=== PATIENT | male | born 1990 | race Caucasian/White ===

== ENCOUNTER 2017-07-18 23:20 | Emergency (ER) | payer OTHER ==
[2015-08-29 08:11] VITALS: Wt 77.1 kg
[~2017-07-18 23:20] MED LIST: ALB18R INH; CALC-515 PO; DOCU-416 PO; IBUP-2708 PO; MIR15 PO; MIRT-1 PO; MULT-1379 PO; NO ROUTINE MEDS; OXYC-865 PO; TRA50 PO; VENL75CA58 PO
[2017-07-18 23:21] VITALS: BP 103/96
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
== END 2017-07-18 23:40 ==
LOC: ER 23:26
DX: R45.851 Suicidal ideations (principal); F10.920 Alcohol use, unspecified with intoxication, uncomplicated; F41.9 Anxiety disorder, unspecified; F33.9 Major depressive disorder, recurrent, unspecified
CPT/HCPCS: 99283

== ENCOUNTER 2018-02-15 02:39 | Emergency (ER) | payer OTHER ==
[2015-08-29 08:11] VITALS: Wt 77.1 kg
[~2018-02-15 02:39] MED LIST changes: -CEPH500T7 PO; -HYDR-4309 PO
[2018-02-15] MEDS ORDERED: ONDANSETRON 4 MG/2 ML VIAL ONE (02:42)
[2018-02-15] MEDS ORDERED: ONDANSETRON 4 MG ODT TABDP SL ONE ×2 (02:45)
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
--- NOTE | 2018-02-15 03:55 | RADIOLOGY IMAGING REPORT ---
FACILITY: [facility] PATIENT NAME: Dustin Oquendo : 1990 MR: [id number] V: [id number] EXAM DATE: ORDERING PHYSICIAN: MAGNOLIA KATZ TECHNOLOGIST: [place] [facility] [place] Dustin Oqu[place] : 1990 Visit/Account:[id number] Date of Sevice: 02/15/[address]: Indication: Injury. Technique: Contiguous axial sections were obtained from the base to the vertex without contrast enhan cement. One of the following dose optimization techniques was utilized in the performance of this exam: Autom ated exposure control; adjustment of the mA and/or kV according to the patient's size; or use of an i terative reconstruction technique. Specific details can be referenced in the facility's radiology CT exam operational policy. Comparison: 09/24/2016 Findings: There is no evidence of intra-axial or extra-axial hemorrhage. No focal areas of decreased or increased attenuation are identified. There is no evidence of mass, edema, or shift of the midline structures. The size, shape, and configuration of the ventricular system are normal. There are signs of acute fractures in the right orbit and nasal bones. There are no signs of skull fr acture. Free fluid and mucosal thickening are present in the right maxillary and ethmoid sinuses. Impression: No evidence of hemorrhage or skull fracture. No acute intracranial abnormality. There are signs of right orbital and nasal bones fractures. Report Dictated By: Manuel Perez MD at 02/15/2018 3:46 AM Report E-Signed By: Manuel Perez MD at 02/15/2018 3:52 AM WSN:[id number]
--- NOTE | 2018-02-15 04:08 | RADIOLOGY IMAGING REPORT ---
[place] [facility] [place] NAME: Dustin Oquendo : 1990 MR: [id number] V: [id number] EXAM DATE: ORDERING PHYSICIAN: MAGNOLIA KATZ TECHNOLOGIST: Location: [facility] [place] Patient: Dustin Oquendo : 1990 Visit/Account:[id number] Date of Sevice: 02/15/2018 CT of the cervical spine without contrast: Indication: Injury. Technique: Helical CT was performed through the cervical spine without contrast. Axial, coronal, and sagittal reconstructions are reviewed. One of the following dose optimization techniques was utilized in the performance of this exam: Autom ated exposure control; adjustment of the mA and/or kV according to the patient's size; or use of an i terative reconstruction technique. Specific details can be referenced in the facility's radiology CT exam operational policy. Comparison: 09/24/2016 Findings: There is no evidence of fracture, compression, subluxation, or other acute deformity. There is uniform mineralization. The skeletal structures are otherwise unremarkable. No paraspinal soft ti ssue abnormalities are identified. IMPRESSION: No evidence of fracture or acute deformity. No significant change. Report Dictated By: Manuel Perez MD at 02/15/2018 3:52 AM Report E-Signed By: Manuel Perez MD at 02/15/2018 4:05 AM WSN:[id number]
--- NOTE | 2018-02-15 04:17 | RADIOLOGY IMAGING REPORT ---
FACILITY: [facility] [place] PATIENT NAME: Dustin Oquendo : 1990 MR: [id number] V: [id number] EXAM DATE: ORDERING PHYSICIAN: MAGNOLIA KATZ TECHNOLOGIST: Location: [facility] Patient: Dustin Oquendo : 1990 Visit/Account:[id number] Date of Sevice: 02/15/2018 CT of the facial bones and orbits: HISTORY: Injury. TECHNIQUE: Helical CT was performed without contrast. Multiplanar reconstructions are reviewed. One of the following dose optimization techniques was utilized in the performance of this exam: Autom ated exposure control; adjustment of the mA and/or kV according to the patient's size; or use of an i terative reconstruction technique. Specific details can be referenced in the facility's radiology CT exam operational policy. COMPARISON: None. FINDINGS: Osseous structures: There is an acute fracture through the right inferior orbital rim and right orbit al floor, without gross displacement. There is also an acute fracture through the medial wall of the right orbit, with a few millimeters leftward displacement. There appears to be acute deformity in the medial wall of the right maxillary sinus. There are acute fractures on the right side of the nasal b ones, with mild leftward displacement. No other acute skeletal deformities are identified. There is n ormal mineralization. Soft Tissues: There is localized soft tissue swelling around the right orbit. No foreign body or gas is identified in the soft tissues. Orbits: The optic globes, optic nerves, and extraocular muscles appear intact and unremarkable. There are no signs of entrapment of the right extraocular muscles. Sinuses and mastoids: There is a small amount of free fluid in the right maxillary sinus. There is mu cosal thickening and fluid in the right ethmoid air cells. IMPRESSION: There are acute fractures through the right inferior orbital rim, right orbital floor, an d medial wall of the right orbit. There are also acute fractures through the medial wall of the right maxillary sinus and right side of the nasal bones. The right orbital contents appear intact and unremarkable. There are no signs of entrapment of the ex traocular muscles. Report Dictated By: Manuel Perez MD at 02/15/2018 4:05 AM Report E-Signed By: Manuel Perez MD at 02/15/2018 4:14 AM WSN:[email or web address]
[2018-02-15] MEDS ORDERED: CEPHALEXIN MONO 500 MG CAP PO ONE (04:20)
[2018-02-15] MEDS ORDERED: IBUPROFEN 600 MG TAB PO ONE (04:20)
[2018-02-15] MEDS ORDERED: ACETAMINOPHEN 325 MG SUPP PR ONE (04:20)
[2018-02-15] MEDS ORDERED: ACETAMINOPHEN 325 MG TAB PO ONE (04:30)
[2018-02-15] MEDS ORDERED: HYDR-4309 PO (04:30)
[2018-02-15] MEDS ORDERED: CEPH500T7 PO (04:30)
[2018-02-15 04:33] VITALS: BP 129/89
[2018-02-15] MEDS ORDERED: ONDANSETRON 4 MG ODT TH SL ONE (04:50)
== END 2018-02-15 05:03 | disposition home or self-care (01) ==
LOC: ER 02:42
DX: S09.90XA Unspecified injury of head, initial encounter (principal); F10.920 Alcohol use, unspecified with intoxication, uncomplicated; S05.11XA Contusion of eyeball and orbital tissues, right eye, initial encounter; S01.111A Laceration without foreign body of right eyelid and periocular area, initial encounter; S00.33XA Contusion of nose, initial encounter; S02.31XA Fracture of orbital floor, right side, initial encounter for closed fracture; S02.2XXA Fracture of nasal bones, initial encounter for closed fracture; Y04.2XXA Assault by strike against or bumped into by another person, initial encounter
CPT/HCPCS: 70450; 70486; 72125; 99284; S0119

== ENCOUNTER → 2018-02-15 | Outpatient (CLI) | payer SELFPAY ==
[2015-08-29 08:11] VITALS: BMI 20.4
[~2018-02-15] MED LIST changes: +CEPH500T7 PO; +HYDR-4309 PO
== END ==
LOC: AMB 02:20
PROVIDERS: ATTEND Nurse Practitioner
DX: S01.111A Laceration without foreign body of right eyelid and periocular area, initial encounter (principal); S00.11XA Contusion of right eyelid and periocular area, initial encounter; M79.89 Other specified soft tissue disorders; Y04.2XXA Assault by strike against or bumped into by another person, initial encounter
CPT/HCPCS: A0425; A0429

== ENCOUNTER 2018-09-14 10:47 | Emergency (ER) | payer OTHER ==
[2015-08-29 08:11] VITALS: Wt 77.1 kg
[~2018-09-14 10:47] MED LIST changes: +CEPH500T7 PO; +HYDR-653 PO
[2018-09-14] MEDS ORDERED: ESCI20TA38 PO (10:53)
[2018-09-14] MEDS ORDERED: LAMO100T52 PO (10:54)
--- NOTE | 2018-09-14 10:58 | ER Report ---
History and Physical Time Seen By MD: 10:58 Hx. 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 BLEEDING CONTROLLED AT THIS TIME HPI/ROS CHIEF COMPLAINT: Laceration HISTORY OF PRESENT ILLNESS: Patient is a 27 year old male presenting to the clinic with a laceration to the left forearm. Patient was at work and was cutting off the top tabs on boxes with a estimator paperboard boxes. The estimator paperboard boxes became stuck and he pushed on the estimator paperboard boxes harder. The estimator paperboard boxes then went through the box and into his arm. Patient applied gauze and tape to the area. Patient up to date with tetanus and got his last tetanus in 2017. Happened today, 09/14/2018, around 10:00 am REVIEW OF SYSTEMS: Respiratory: No cough, no dyspnea. Cardiovascular: No chest pain, no palpitations. Gastrointestinal: No vomiting, no abdominal pain. Musculoskeletal: No numbness or tingling down his arm. Patient has full ROM in left arm. Allergies: Coded Allergies: No Known Drug Allergies (Unverified , 02/15/18) Home Meds Reported Medications Lamotrigine (LAMOTRIGINE) 100 Mg Tablet, 100 MG PO 09/14/18 Escitalopram Oxalate (LEXAPRO) 20 Mg Tablet, 20 MG PO QDAY, TAB 09/14/18 Discontinued Scripts Cephalexin 500 Mg Tab (KEFLEX 500 MG TAB) 500 Mg Tablet, 500 MG PO TID for infection, #30 TAB Prov:MAGNOLIA KATZ DO 02/15/18 Hydrocodone Bit/Acetaminophen (NORCO 5-325 TABLET) 1 Each Tablet, 1 EACH PO Q4H PRN for PAIN, #12 TAB Prov:MAGNOLIA KATZ DO 02/15/18 Past Medical/Surgical History Patient has the katharina's gene, GERD, and depression. Patient had a hernia repair 1.5 year ago. Reviewed Nurses Notes: Yes Hx Smoking: No Smoking Status: Never Smoker Exposure to Second Hand Smoke?: No Hx Substance Use Disorder: No Hx Alcohol Use: Yes Constitutional Vital Sign - Last 24 Hours 09/14/18 09/14/18 10:50 11:53 Temp 98.5 Pulse 85 Resp 16 B/P (MAP) 138/88 (105) Pulse Ox 95 O2 Delivery Room Air Room Air Physical Exam General Appearance: The patient is alert, has no immediate need for airway protection and no current signs of toxicity. Respiratory: Chest is non tender, lungs are clear to auscultation. Cardiac: Regular rate and rhythm Musculoskeletal: Extremities have full range of motion and are non tender. No decreased sensation in left arm. Strength strong and equal bilaterally. Skin: Left forearm, laceration 1.2 cm in length. Depth is into the subcutaneous tissue. [DIFFERENTIAL DIAGNOSIS: After history and physical exam differential diagnosis was considered for laceration, tendon or ligament involvement. Medical Decision Making ED Course/Re-evaluation ED Course Patient was admitted to the ED room and placed in a bed. History and physical were obtained. Differential diagnoses were considered. Patient has a 1.2 cm laceration to the left forearm. 1.5 ml of 2% lidocaine was administered to the laceration. Wound was cleaned by staff. Patient verified the laceration was numb. 4.0 Prolene was used and 3 sutures were placed. Bacitracin, keflex, and gauze was applied. Area was wrapped with coban. Instructions were given to the patient on care of the site. Also instructed patient on signs and symptoms of infection. Patient verbalized understanding. Patient discharged to home. Procedure: Laceration repair. Verbal consent was obtained from the patient. The 1.2 cm laceration on the left forearm was anesthetized in the usual fashion. The wound was scrubbed, draped and explored to its base with a gloved finger. There were no deep structures involved. No tendon injury was identified. The wound was repaired with 3 simple interrupted sutures using 4-0 Prolene material. The wound repair was simple. The procedure was performed by myself. Decision to Disposition Date: Sep 14, 2018 Decision to Disposition Time: 11:30 Depart Departure Latest Vital Signs Vital Signs Date Time Temp Pulse Resp B/P (MAP) Pulse Ox O2 Delivery O2 Flow Rate FiO2 09/14/18 11:53 85 16 138/88 (105) 95 Room Air 09/14/18 10:50 98.5 Impression: Primary Impression: Laceration Condition: Improved Disposition: HOME OR SELF-CARE Patient Instructions: Laceration (ED) Additional Instructions: Keep wound dry for 48 hours. Follow up with your primary care provider in the next 7-10 days to have sutures removed. Monitor for signs of infection; redness, swelling, heat, discharge, increasing pain or red streaking. Take Tylenol or Ibuprofen as needed for pain. Return to the ER with any concerns. You may change dressing as needed. SUSANNA BENAVIDES Sep 14, 2018 10:58
[2018-09-14 11:53] VITALS: BP 138/88
== END 2018-09-14 11:58 | disposition home or self-care (01) ==
LOC: ER 11:14
DX: S51.812A Laceration without foreign body of left forearm, initial encounter (principal); W26.0XXA Contact with knife, initial encounter
CPT/HCPCS: 99283

== ENCOUNTER 2018-11-14 19:19 | Inpatient (IN) | payer SELFPAY ==
[~2018-11-14] VITALS: Ht 180.3 cm; Wt 77.1 kg
[~2018-11-14 19:19] MED LIST changes: +ESCI20TA38 PO; +LAMO100T52 PO
--- NOTE | 2018-11-14 19:31 | ER Report ---
History and Physical Time Seen By MD: 19:31 HPI/ROS CHIEF COMPLAINT: suicide attempt by overdose HISTORY OF PRESENT ILLNESS: This is a 28 year old male. He attempted suicide tonight by overdosing on his medications. He took Lexapro 20mg tablets approx # 50, Lamictal 100mg tablets approx #60, and Seroquel 25mg tablets, approx #60. This was about 40 minutes prior to arrival. Here with family. He is now vomiting up his stomach contents, lots of pill fragments present. Denies other medications ingested. Suicidal thought worsening the last few weeks. Prior suicide attempt with Tylenol overdose, and in the past also attempted to shoot himself, but could not pull the trigger. Has been admitted to behavioral health in the past for suicidal ideation and for suicide attempts. He is feeling very tired. REVIEW OF SYSTEMS: Constitutional: No fever or chills. Eyes: No vision changes. ENT: No sore throat. No congestion. Cardiovascular: No chest pain. Respiratory: No shortness of breath. Gastrointestinal: No abdominal pain. Genitourinary: No recent trouble with urination. Musculoskeletal: No musculoskeletal pain. Skin: No rashes. Neurological: As above. Allergies: Coded Allergies: No Known Drug Allergies (Unverified , 11/14/18) Home Meds Reported Medications Quetiapine Fumarate (SEROQUEL) 25 Mg Tablet, 25 MG PO HS 11/14/18 Lamotrigine (LAMOTRIGINE) 100 Mg Tablet, 100 MG PO 09/14/18 Escitalopram Oxalate (LEXAPRO) 20 Mg Tablet, 20 MG PO QDAY, TAB 09/14/18 Reviewed Nurses Notes: Yes Hx Smoking: No Smoking Status: Never Smoker Exposure to Second Hand Smoke?: No Hx Substance Use Disorder: No Hx Alcohol Use: Yes Constitutional Vital Sign - Last 24 Hours 11/14/18 11/14/18 11/14/18 11/14/18 19:21 19:24 19:49 19:50 Pulse 105 92 87 Resp 35 20 B/P (MAP) 125/79 (94) 125/79 Pulse Ox 94 93 93 O2 Delivery Room Air 11/14/18 11/14/18 11/14/18 11/14/18 20:00 20:19 20:30 20:49 Pulse 81 75 Resp 8 22 B/P (MAP) 116/75 (89) 123/81 (95) Pulse Ox 95 92 11/14/18 21:00 B/P (MAP) 110/59 (76) Intake and Output 11/14/18 11/14/18 11/15/18 15:00 23:00 07:00 Intake Total 1000 ml Balance 1000 ml Physical Exam General Appearance: The patient is alert. Acute distress from ongoing vomiting. Vomiting up emesis with a lot of pill fragments. Eyes: Pupils are equal, round. No pallor or icterus, but does have some injection. Extraocular movements are intact. ENT: Mucous membranes are moist. Normal oral mucosa. Posterior oropharynx is normal. Neck: Supple and non tender. Respiratory: Lungs are clear to auscultation. Cardiovascular: Regular rate and rhythm. No murmurs, gallops or rubs. Normal capillary refill. Gastrointestinal: Abdomen is soft and non tender. Nondistended. Normal active bowel sounds. Neurological: Alert and oriented x3. No focal neurologic deficits other than being tired. Skin: Warm and dry. DIFFERENTIAL DIAGNOSIS: After history and physical exam, differential diagnosis was considered for suicide attempt by attempted overdose as above. Medical Decision Making Data Points Result Diagram: 11/14/18 1927 11/14/18 2244 Laboratory Hematology Test 11/14/18 19:27 Red Blood Count 5.71 M/uL (4.00-5.60) Mean Corpuscular Volume 88.2 fL (80.0-96.0) Mean Corpuscular Hemoglobin 30.9 pg (26.0-33.0) Mean Corpuscular Hemoglobin Concent 35.0 g/dL (32.0-36.0) Red Cell Distribution Width 13.0 % (11.5-14.5) Mean Platelet Volume 8.1 fL (7.2-11.1) Neutrophils (%) (Auto) 59.9 % (39.4-72.5) Lymphocytes (%) (Auto) 27.0 % (17.6-49.6) Monocytes (%) (Auto) 8.8 % (4.1-12.4) Eosinophils (%) (Auto) 3.1 % (0.4-6.7) Basophils (%) (Auto) 1.2 % (0.3-1.4) Nucleated RBC Relative Count (auto) 0.2 /100WBC Neutrophils # (Auto) 3.0 K/uL (2.0-7.4) Lymphocytes # (Auto) 1.4 K/uL (1.3-3.6) Monocytes # (Auto) 0.4 K/uL (0.3-1.0) Eosinophils # (Auto) 0.2 K/uL (0.0-0.5) Basophils # (Auto) 0.1 K/uL (0.0-0.1) Nucleated RBC Absolute Count (auto) 0.01 K/uL Prothrombin Time 13.1 seconds (12.0-14.4) Prothromb Time International Ratio 0.99 Activated Partial Thromboplast Time 26 seconds (23-35) Magnesium Level 1.7 mg/dl (1.7-2.2) Serum Alcohol < 10 mg/dl Chemistry Test 11/14/18 19:27 White Blood Count 5.0 k/uL (4.5-11.0) Red Blood Count 5.71 M/uL (4.00-5.60) Hemoglobin 17.6 g/dL (14.0-18.0) Hematocrit 50.4 % (42.0-52.0) Mean Corpuscular Volume 88.2 fL (80.0-96.0) Mean Corpuscular Hemoglobin 30.9 pg (26.0-33.0) Mean Corpuscular Hemoglobin Concent 35.0 g/dL (32.0-36.0) Red Cell Distribution Width 13.0 % (11.5-14.5) Platelet Count 205 K/uL (150-450) Mean Platelet Volume 8.1 fL (7.2-11.1) Neutrophils (%) (Auto) 59.9 % (39.4-72.5) Lymphocytes (%) (Auto) 27.0 % (17.6-49.6) Monocytes (%) (Auto) 8.8 % (4.1-12.4) Eosinophils (%) (Auto) 3.1 % (0.4-6.7) Basophils (%) (Auto) 1.2 % (0.3-1.4) Nucleated RBC Relative Count (auto) 0.2 /100WBC Neutrophils # (Auto) 3.0 K/uL (2.0-7.4) Lymphocytes # (Auto) 1.4 K/uL (1.3-3.6) Monocytes # (Auto) 0.4 K/uL (0.3-1.0) Eosinophils # (Auto) 0.2 K/uL (0.0-0.5) Basophils # (Auto) 0.1 K/uL (0.0-0.1) Nucleated RBC Absolute Count (auto) 0.01 K/uL Prothrombin Time 13.1 seconds (12.0-14.4) Prothromb Time International Ratio 0.99 Activated Partial Thromboplast Time 26 seconds (23-35) Magnesium Level 1.7 mg/dl (1.7-2.2) Serum Alcohol < 10 mg/dl Coagulation Test 11/14/18 19:27 Prothrombin Time 13.1 seconds Prothromb Time International Ratio 0.99 Activated Partial Thromboplast Time 26 seconds Toxicology Test 11/14/18 19:27 Serum Alcohol < 10 mg/dl ED Course/Re-evaluation Clinical Indication for ER IV: Hydration, IV Access ED Course Patient was initially vomiting. Once he stopped vomiting and was able to purge a lot of the contents of his stomach, we went ahead and use Zofran to help with nausea and vomiting and then had him take 25 mg of activated charcoal with sorbitol. Also gave a liter of normal saline. Labs obtained with the mildly low potassium. Toxicology at poison control was counseled did with recommendations for each of these medicines. Lexapro level taken tonight was 1000 mg, greater than 500 mg recommended telemetry for 13 hours, watch for QT prolongation, serotonin syndrome, hyponatremia, tachycardia, and seizures. Lamictal dose tonight was over 6 g. Risk for status epilepticus, hypokalemia, tachycardia, CUSTOMER EXPERIENCE STRATEGIST depression, coma, and increased LFTs. Seroquel level taken tonight was 1500 mg, 800 mg max over every 24 hours, watch for tachycardia, QTC prolongation, seizures, myoclonic jerks, CUSTOMER EXPERIENCE STRATEGIST depression, increased LFTs Recommendation repeating a toxic level for Tylenol and salicylates at 4 hours which would be about 2230 hrs.. Also recommended repeating EKG every 6 hours and trending. Recommended keeping potassium greater than 4.5, mag greater than 2, calcium greater than 9. Recommended bicarbonate QRS duration exceeds 120. R ecommended trying to keep QTC below 460. His potassium is little low, went ahead and gave a 20 mEq potassium rider. Anion gap is low. Gave another liter of saline. Discussed with Dr. Torres, hospitalist, who accepted the patient for admission to ICU tonight. Decision to Disposition Date: November 14, 2018 Decision to Disposition Time: 21:30 Critical Care Time I spent a total of 60 minutes of critical care time in obtaining history, performing a physical exam, bedside monitoring of interventions, collecting and interpreting tests and discussion with consultants but not including time spent performing procedures. Depart Departure Latest Vital Signs Vital Signs Date Time Temp Pulse Resp B/P (MAP) Pulse Ox O2 Delivery O2 Flow Rate FiO2 11/14/18 21:00 110/59 (76) 11/14/18 20:49 75 22 92 11/14/18 19:50 Room Air Impression: Primary Impression: Drug overdose, intentional Condition: Critical Disposition: Admitted from ER Problem Qualifiers Primary Impression: Drug overdose, intentional Encounter type: initial encounter Qualified Codes: T50.902A - Poisoning by unspecified drugs, medicaments and biological substances, intentional self-harm, initial encounter MARÍA BRUNNER MD November 14, 2018 19:31
[2018-11-14] MEDS ORDERED: NS(*) 0.9% 1000 ML BAG 1,000 ML IV ONE ×2 (19:35→20:25)
[2018-11-14] MEDS ORDERED: ONDANSETRON 4 MG/2 ML VIAL IVP ONE (19:35)
[2018-11-14] MEDS ORDERED: ACTIVATED CHAR/SORB 25GM/120ML PO ONE (19:35)
[2018-11-14 19:43] LABS: PLATELET COUNT, AUTOMATED 205 K/uL (150-450)
[2018-11-14 19:57] LABS: INR 0.99
[2018-11-14] MEDS ORDERED: KCL (*) 20 MEQ/100 ML PREMIX 100 ML IV ONE (20:25)
[2018-11-14] MEDS ORDERED: QUET25TA30 PO (20:26)
[2018-11-14 22:00] VITALS: BP 115/83
[2018-11-14] MEDS ORDERED: NS(*) 0.9% 1000 ML BAG 1,000 ML IV PRN (22:01)
[2018-11-14] MEDS ORDERED: MAGNESIUM SUL* 2 GM/50 ML IVPB 50 ML IVPB ONE (22:05)
[2018-11-14] MEDS ORDERED: FLUSH 10 ML SYR IVP PRN (22:05)
--- NOTE | 2018-11-14 22:47 | History & Physical ---
History of Present Illness Chief Complaint overdose History of Present Illness 28M presented with recent intentional overdose. PMHx significant for depression, suicide attempts. Reports took 1000mg Lexapro, 6 grams Lamictal, 1500mg Seroquel at 1830 in suicide attempt. Vomited repeatedly on presentation with pills in emesis. Given activated charcoal. Admitted for monitoring and treatment to ICU. History Problems: (1) Suicidal ideation Status: Acute (2) Depression Status: Chronic Home Meds Reported Medications Quetiapine Fumarate (SEROQUEL) 25 Mg Tablet, 25 MG PO HS 11/14/18 Lamotrigine (LAMOTRIGINE) 100 Mg Tablet, 100 MG PO 09/14/18 Escitalopram Oxalate (LEXAPRO) 20 Mg Tablet, 20 MG PO QDAY, TAB 09/14/18 Allergies: Coded Allergies: No Known Drug Allergies (Unverified , 11/14/18) Patient History: FH: [place]'s disease FATHER (LANA'S DISEASE) Hx Smoking: No Smoking Status: Never Smoker Exposure to Second Hand Smoke?: No Caffeine Intake: Tea, Soda Caffeine/Cups Per Day: 2 Hx Alcohol Use: Yes Hx Substance Use Disorder: No Social Drug Use: Former Social Drugs: Marijuana Amount Of Social Drug/s Used: tried it twice Review of Systems All Systems Reviewed/Normal: Yes, Except as Noted Cardiovascular: No Chest Pain Gastrointestinal: No Nausea, No Vomiting Exam Vital Signs Vital Signs Date Time Temp Pulse Resp B/P (MAP) Pulse Ox O2 Delivery O2 Flow Rate FiO2 11/14/18 21:00 110/59 (76) 11/14/18 20:49 75 22 92 11/14/18 19:50 Room Air General Appearance: Awake, No Acute Distress, Afebrile Neuro: No Gross deficits Cardiovascular: Normal Rhythm & Peripheral Pulses Respiratory: No Respiratory Distress GI: Abd Soft and Non-Tender Extremities: Soft and Non Tender, Warm, Pulses, Perfused Medical Decision Making Data Points Result Diagram: 11/14/18192611/14/181926 EKG / Imaging EKG Interpretation NSR, QRS and QTc WNL. Assessment and Plan Problems: (1) Drug overdose, intentional Status: Acute Assessment & Plan: Overdose on quetiapine, lamotrigine and escitalopram. Monitor labs and EKG. Maintain K above 4, Mg above 2 Ca around 9. Monitor QRS and QTc for prolongation. Voluntary admission but if attempts to leave will place on emergency hold. (2) Depression Status: Chronic Venous Thromboembolism Antithrombotics Is Pt On Any Antithrombotics?: Yes Exam Sepsis Risk: No Definite Risk RODRIGUEZ SARAH BARRETT DO November 14, 2018 22:47
[2018-11-15] VITALS (7 sets, daily range): BP systolic 90–109; BP diastolic 44–76; Ht 180.3 cm; Wt 77.1 kg
--- NOTE | 2018-11-15 00:02 | EKG ---
FACILITY: [facility] PATIENT NAME: HUMZA OLIVER : [id number] MR: [id number] V: [id number] EXAM DATE: ORDERING PHYSICIAN: MARÍA BRUNNER TECHNOLOGIST: NIYAH Miller Reason : overdose Blood Pressure : / mmHG Vent. Rate : 089 BPM Atrial Rate : 089 BPM P-R Int : 130 ms QRS Dur : 096 ms QT Int : 352 ms P-R-T Axes : 050 065 012 degrees QTc Int : 428 ms Normal sinus rhythm Normal ECG When compared with ECG of 03-AUG-2015 08:00, T wave inversion now evident in Inferior leads Confirmed by BRINA ZUÑIGA ([id number]) on 11/15/2018 7:44:33 PM Referred By: Confirmed By:BRINA ZUÑIGA
--- NOTE | 2018-11-15 01:04 | EKG ---
FACILITY: [facility] PATIENT NAME: HUMZA OLIVER : [id number] MR: [id number] V: [id number] EXAM DATE: ORDERING PHYSICIAN: SARAH BARRETT TECHNOLOGIST: NIYAH Miller Reason : OVERDOSE Blood Pressure : / mmHG Vent. Rate : 065 BPM Atrial Rate : 065 BPM P-R Int : 124 ms QRS Dur : 096 ms QT Int : 368 ms P-R-T Axes : 050 067 033 degrees QTc Int : 382 ms Normal sinus rhythm Normal ECG When compared with ECG of 14-NOV-2018 19:48, No significant change was found Confirmed by BRINA ZUÑIGA ([id number]) on 11/15/2018 7:43:00 PM Referred By: Confirmed By:BRINA ZUÑIGA
[2018-11-15] MEDS ORDERED: MAGNESIUM SUL* 2 GM/50 ML IVPB 50 ML ONE (04:50)
[2018-11-15] MEDS ORDERED: ENOXAPARIN 40 MG/0.4ML SYR SC SCH (09:00)
--- NOTE | 2018-11-15 11:54 | EKG ---
FACILITY: [facility] PATIENT NAME: HUMZA OLIVER : [id number] MR: [id number] V: [id number] EXAM DATE: ORDERING PHYSICIAN: SARAH BARRETT TECHNOLOGIST: NIYAH Miller Reason : OVERDOSE Blood Pressure : / mmHG Vent. Rate : 066 BPM Atrial Rate : 066 BPM P-R Int : 144 ms QRS Dur : 094 ms QT Int : 370 ms P-R-T Axes : 048 069 029 degrees QTc Int : 387 ms Normal sinus rhythm Normal ECG When compared with ECG of 15-NOV-2018 00:32, No significant change was found Confirmed by BRINA ZUÑIGA ([id number]) on 11/15/2018 7:42:34 PM Referred By: Confirmed By:BRINA ZUÑIGA
--- NOTE | 2018-11-15 12:44 | Hospitalist Depart ---
Discharge Summary Reason for Hosp/Final Diag: (1) Drug overdose, intentional Status: Acute Hospital Course & Plan: The patient overdosed on quetiapine, lamotrigine and escitalopram. Poison control was consulted and recommended monitoring labs and EKG/telemetry. Also recommended was to maintain potassium above 4, magnesium above 2, and calcium around 9. He was hydrated and placed on telemetry to monitor QRS and QTc for prolongation as well as arrhythmias. He has had no cardiac issues. His electrolytes have been WNL (calcium is WNL with correction for albumin). [facility] has agreed to take the patient in transfer. (2) Depression Status: Chronic Hospital Course & Plan: The patient apparently recently started new medications. He agreed to transfer to [facility] for further evaluation and treatment. Departure Weight (Pounds): 170 Result Diagram: 11/14/18192611/15/18 0600 Condition: Improved Discharge: [facility] Time Spent: < 30 min Discharge Instructions Home Meds Reported Medications Quetiapine Fumarate (SEROQUEL) 25 Mg Tablet, 25 MG PO HS 11/14/18 Lamotrigine (LAMOTRIGINE) 100 Mg Tablet, 100 MG PO 09/14/18 Escitalopram Oxalate (LEXAPRO) 20 Mg Tablet, 20 MG PO QDAY, TAB 09/14/18 Diet: Regular Activity: As Tolerated Venous Thromboembolism Antithrombotics Is Pt On Any Antithrombotics?: Yes Problem Qualifiers (1) Drug overdose, intentional: Encounter type: initial encounter Qualified Codes: T50.902A - Poisoning by unspecified drugs, medicaments and biological substances, intentional self-harm, initial encounter BRINA VALVERDE MD November 15, 2018 12:43
== END 2018-11-15 13:35 | DRG 918 ==
LOC: ER 19:31 → ICU 21:52
PROVIDERS: ADMIT Internal Medicine; ATTEND Internal Medicine
DX: T43.592A Poisoning by other antipsychotics and neuroleptics, intentional self-harm, initial encounter (principal); F32.9 Major depressive disorder, single episode, unspecified; Z91.5 Personal history of self-harm
CPT/HCPCS: 36415; 80320; 80329; 82040; 82247; 82310; 82374; 82435; 82565; 82947; 83735; 84075; 84132; 84155; 84295; 84450; 84460; 84520; 85025; 85610; 85730; 93005; 96361; 96374; 99291; J1650; J2405; J3475; J3480; J7030

== ENCOUNTER 2018-11-15 13:32 | Inpatient (IN) | payer SELFPAY ==
[~2018-11-15] VITALS: Ht 180.3 cm; Wt 77.1 kg
[2018-11-15 08:33] VITALS: Ht 180.3 cm; Wt 77.1 kg
[~2018-11-15 13:32] MED LIST changes: +QUET25TA30 PO
[2018-11-15 13:35] VITALS: BP 128/68
[2018-11-15 20:15] VITALS: BP 118/72
[2018-11-16 06:26] LABS: PLATELET COUNT, AUTOMATED 193 K/uL (150-450)
[2018-11-16 06:38] VITALS: BP 119/83
[2018-11-16] MEDS: MULTIVITAMINS TAB PO SCH (08:08)
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
[2018-11-17 05:55] VITALS: BP 100/68
[2018-11-17] MEDS ORDERED: ACETAMINOPHEN 500 MG TAB PO PRN (08:00)
[2018-11-17] MEDS: ESCITALOPRAM OXALATE 10 MG TAB PO SCH (08:24)
[2018-11-17] MEDS: MULTIVITAMINS TAB PO SCH (08:24)
[2018-11-17 12:15] VITALS: BP 128/72
--- NOTE | 2018-11-17 13:45 | BHS Progress Note ---
[facility] - Subjective Progress Notes Subjective Pt seen in conference room with team. Pt reports continued depression and passive wishes. He does not feel suicidal here, but worries about "how bad things are when I get out," saying he fears he could become suicidal again. Says he wishes he knew how to cope with rejection better. Has been attending rouaidee and individual therapy actively, and is motivated to work on coping with negative thinking, as well as mindfulness, today. Tolerating lexapro well. Did wake up with headache this am-- tylenol helped. Slept ok last night. His mother and sister will attend treatment team meeting tomorrow. Suicidal Ideation: Resolving Homicidal Ideation: None [facility] - Objective Physical Exam Vital Signs Vital Signs 11/15/18 11/17/18 20:15 05:55 Temp 98.4 Pulse 67 Resp 14 B/P (MAP) 100/68 (79) Pulse Ox 93 O2 Delivery Room Air Muscle Strength and Tone: WNL Gait and Station: Steady [facility] Medications Reviewed: Side Effects, Benefits of Medication, Risks Allergies Reviewed: Yes Mental Status Exam General Appearance: Casual, Well Groomed, Good Eye Contact, Cooperative, Polite, Good Interaction Speech: Clear, Delayed Mood: Dysthmic/Depressed Affect: Calm, Sad Thought Process: Organized, Logical, Goal Directed Thought Content: Suicidal Ideation (passive wishes); No Homicidal Ideation, No Delusions, No Auditory Halllucinations, No Visual Hallucinations, No Thought Broadcasting, No Ideas of Reference, No Obsessions, No Compulsions, No Other Sensorium: Clear Cognition: Alert & Oriented-Person, Alert & Oriented-Place, Alert & Oriented- Time, [id number]-[id number] Memory: Immediate, Recent, Remote Intelligence: Average Insight Judgment: Fair Result Diagram: 11/16/18 0553 11/16/18 0553 [facility] Assessment and Plan [id number] Encounter Date: November 17, 2018 [id number] Encounter Time: 10:00 [facility] Plan: Necessary Precautions, Individual/Group Therapy, Admin/Titrate Meds, Educate Patient Tobacco Medications: Not Appropriate Condition Multpiple Antipsychotics Used: No Problems: (1) Persistent depressive disorder (2) Alcohol use disorder, severe, dependence (3) Carl's disease BOB PALOMINO MD November 17, 2018 13:45
[2018-11-17 21:02] VITALS: BP 120/72
[2018-11-18 06:15] VITALS: BP 111/78
[2018-11-18] MEDS: ESCITALOPRAM OXALATE 10 MG TAB PO SCH (08:28)
[2018-11-18] MEDS: MULTIVITAMINS TAB PO SCH (08:28)
--- NOTE | 2018-11-18 13:53 | BHS Progress Note ---
[facility] - Subjective Progress Notes Subjective Pt seen in treatment team with his mother and special assets officer present, and his therapist present by speaker phone. Pt doing a bit better today, talking about coping skills from DBT like sahu mind and confronting negative thinking, and how these are helpful for him. Denies SI today, mood and affect are brighter. Still a lot of anxiety regarding discharge, discussing his sister's graduation this weekend and how being around certain family can be a trigger for him. We will work for a tentative discharge tomorrow if he remains stable, with plan of him meeting with PO tomorrow afternoon and also holding a meeting with his therapist and Shana Ahumada, and the woman from his IOP group with whom he has had conflict. Suicidal Ideation: None Homicidal Ideation: None [facility] - Objective Physical Exam Vital Signs Vital Signs 11/17/18 11/18/18 12:15 06:15 Temp 98.6 Pulse 71 Resp 18 B/P (MAP) 111/78 (89) Pulse Ox 94 O2 Delivery Room Air Muscle Strength and Tone: WNL Gait and Station: Steady [facility] Medications Reviewed: Side Effects, Benefits of Medication, Risks Allergies Reviewed: Yes Mental Status Exam General Appearance: Casual, Well Groomed, Good Eye Contact, Cooperative, Polite, Good Interaction Speech: Clear, Spontaneous, Normal Rate Mood: Dysthmic/Depressed Affect: Calm, Sad Thought Process: Organized, Logical, Goal Directed Thought Content: No Suicidal Ideation, No Homicidal Ideation, No Delusions, No Auditory Halllucinations, No Visual Hallucinations, No Thought Broadcasting, No Ideas of Reference, No Obsessions, No Compulsions, No Other Sensorium: Clear Cognition: Alert & Oriented-Person, Alert & Oriented-Place, Alert & Oriented- Time, Ojrmh-Hnkgyggc-Mmxtmkdos Memory: Immediate, Recent, Remote Intelligence: Average Insight Judgment: Fair Result Diagram: 11/16/18 0553 11/16/18 0553 [facility] Assessment and Plan Tack-hd-Bxcj Encounter Date: November 18, 2018 Qhrw-je-Kyav Encounter Time: 08:30 [facility] Plan: Necessary Precautions, Individual/Group Therapy, Admin/Titrate Meds, Educate Patient Tobacco Medications: Not Appropriate Condition Multpiple Antipsychotics Used: No Problems: (1) Persistent depressive disorder (2) Alcohol use disorder, severe, dependence (3) Broward's disease BOB PALOMINO MD November 18, 2018 13:53
[2018-11-18 20:18] VITALS: BP 109/90
[2018-11-19 05:57] VITALS: BP 103/65
[2018-11-19] MEDS: MULTIVITAMINS TAB PO SCH (08:02)
[2018-11-19] MEDS: ESCITALOPRAM OXALATE 10 MG TAB PO SCH (08:02)
[2018-11-19] MEDS ORDERED: MULT-1379 PO (09:46)
[2018-11-19 10:44] VITALS: BP 117/78
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
== END 2018-11-19 13:15 | disposition home or self-care (01) | DRG 881 ==
LOC: BHS 13:35
PROVIDERS: ADMIT Nurse Practitioner Psychiatric/Mental Health; ATTEND Nurse Practitioner Psychiatric/Mental Health
DX: F34.1 Dysthymic disorder (principal); G10 Huntington's disease; R45.851 Suicidal ideations; F10.21 Alcohol dependence, in remission; Z60.4 Social exclusion and rejection
CPT/HCPCS: 36415; 82040; 82247; 82310; 82374; 82435; 82565; 82947; 84075; 84132; 84155; 84295; 84450; 84460; 84520; 85025